=== PATIENT | female | born 1970 | race Caucasian/White ===

== ENCOUNTER 2016-12-06 09:38 | Emergency (ER) | payer BC ==
[2016-12-06 10:27] VITALS: BP 110/72
[2016-12-06] MEDS ORDERED: Amoxicillin/Clavulanate TAB* 875 MG PO ONE (10:41)
[2016-12-06] MEDS ORDERED: Tetan/Diph/Pertus SYR(Tdap)* 0.5 ML SYR(BOOSTRIX) use SYR IM ONE (10:41)
--- NOTE | 2016-12-06 12:00 | UC ---
Bite Injury/Animal HPI - HPI Summary HPI Summary: RIGHT THUMB AND LEFT HAND BITTEN BY KITTEN YESTERDAY. TODAY SHOWING SIGNS OF INFLAMMATION. NO FEVER. - History of Current Complaint Chief Complaint: UCBiteInjury Stated Complaint: KITTEN BITE Time Seen by Provider: 12/06/16 10:16 Hx Obtained From: Patient Hx Last Menstrual Period: 11/26/16 Severity Currently: Mild Severity Initially: Mild Pain Intensity: 3 Pain Scale Used: 0-10 Numeric Onset/Duration: Sudden Onset, Lasting Days Type of Bite: Pet Character: Puncture Associated Signs And Symptoms: Positive: Erythema, Swelling Animal Available for Observation: Yes Animal Control Notified: Yes - Risk Factors Infection/Sepsis Risk Factors: Negative - Allergies/Home Medications Allergies/Adverse Reactions: Allergies Allergy/AdvReac Type Severity Reaction Status Date / Time Sulfa Antibiotics Allergy Vomiting Verified 12/06/16 10:25 Home Medications: Home Medications Dostinex 0.5 mg PO SEE INSTRUCTIONS 12/06/16 [History] ceFUROXime TAB(*) [Ceftin TAB 250 MG(*)] 250 mg PO ONCE 12/06/16 [History Confirmed 12/06/16] PMH/Surg Hx/FS Hx/Imm Hx Previously Healthy: Yes - Surgical History Surgical History: None - Family History Known Family History: Positive: Blood Disorder - FATHER JOAQUÍN - Social History Occupation: Employed Full-time Lives: With Family Alcohol Use: Rare Substance Use Type: None Smoking Status (MU): Never Smoked Tobacco - Immunization History Most Recent Influenza Vaccination: no Most Recent Tetanus Shot: June 2009 Review of Systems Constitutional: Negative Skin: Rash Eyes: Negative ENT: Negative Respiratory: Negative Cardiovascular: Negative Gastrointestinal: Negative Genitourinary: Negative Motor: Negative Neurovascular: Negative Musculoskeletal: Negative Neurological: Negative Psychological: Negative Is Patient Immunocompromised?: No All Other Systems Reviewed And Are Negative: Yes Physical Exam Triage Information Reviewed: Yes Appearance: Well-Appearing, No Pain Distress, Well-Nourished Vital Signs: Initial Vital Signs Temp 98 F 12/06/16 10:18 Pulse 58 12/06/16 10:18 Resp 16 12/06/16 10:18 BP 110/72 12/06/16 10:18 Pulse Ox 99 12/06/16 10:18 Vital Signs Reviewed: Yes Eye Exam: Normal ENT Exam: Normal ENT: Positive: Normal ENT inspection Dental Exam: Normal Neck exam: Normal Neck: Positive: Supple, Nontender, No Lymphadenopathy Respiratory Exam: Normal Respiratory: Positive: Chest non-tender, Lungs clear, Normal breath sounds, No respiratory distress, No accessory muscle use Cardiovascular Exam: Normal Cardiovascular: Positive: RRR, No Murmur, Pulses Normal Abdominal Exam: Normal Musculoskeletal Exam: Normal Musculoskeletal: Positive: Strength Intact, ROM Intact, No Edema Neurological Exam: Normal Psychological Exam: Normal Skin Exam: Normal Bite Injury Course/Dx - Differential Dx/Diagnosis Differential Diagnosis/HQI/PQRI: Cellulitis, Rabies Exposure, Superficial Infection, Deep Space Infection Provider Diagnoses: CAT BITE RIGHT THUMB, LEFT HAND; CELLULITIS Discharge - Discharge Plan Condition: Stable Disposition: HOME Prescriptions: Amoxicillin/Clavulanate TAB* [Augmentin TAB 875*] 875 mg PO BID #20 tab Patient Education Materials: Animal Bite (ED), Cellulitis (ED) Referrals: [facility] [Outside]
== END 2016-12-06 11:03 | disposition home or self-care (01) ==
LOC: UCCORT 09:38
DX: S61.052A Open bite of left thumb without damage to nail, initial encounter (principal); L03.011 Cellulitis of right finger; W55.01XA Bitten by cat, initial encounter; Z88.2 Allergy status to sulfonamides
CPT/HCPCS: 90471; 90715; 99202; A9270-GY; G0463